=== PATIENT | female | born 1940 | race Caucasian/White ===

== ENCOUNTER 2018-05-18 18:15 | Emergency (ER) | payer MEDICARE, BC ==
[2018-05-18] MEDS ORDERED: PROPARACAINE 0.5% OPHTH DROPS 15 ML EACHEYE STA (18:22)
[2018-05-18 18:28] VITALS: BP 161/60
[2018-05-18] MEDS ORDERED: POLYMYXIN B/TRIMETH OPHTH DROPS RIGHTEYE STA (18:32)
--- NOTE | 2018-05-18 18:34 | ED Physician Documentation ---
PD HPI OPHTHO - Stated complaint Stated Complaint: RT EYE INJ - Chief complaint Chief Complaint: Heent - History obtained from History obtained from: Patient - History of Present Illness Timing - onset: Today Timing - duration: Hours (8) Timing - details: Abrupt onset Pain level max: 5 Pain level now: 5 Location: Right Quality / character: Aching Associated symptoms: Redness, Tearing Contributing factors: Blunt trauma (wooden hangar), Wears glasses. No: Wears contacts Similar symptoms before: Has not had sx before Recently seen: Not recently seen Review of Systems Eyes: reports: Irritation. denies: Decreased vision Ears: denies: Ear pain Nose: denies: Rhinorrhea / runny nose PD PAST MEDICAL HISTORY - Past Medical History Past Medical History: Yes Cardiovascular: Hypertension, High cholesterol - Past Surgical History Past Surgical History: No - Present Medications Home Medications: Ambulatory Orders Medication Instructions Recorded Confirmed Atorvastatin [Lipitor] 10 mg 05/18/18 Hydrochlorothiazide 12.5 mg 05/18/18 Losartan [Cozaar] 50 mg 05/18/18 Polymyxin B/Trimeth Ophth Drop 1 drops RIGHTEYE Q3H 7 Days #1 05/18/18 [Polytrim Ophth Drops] bottle - Allergies Allergies/Adverse Reactions: Allergies Allergy/AdvReac Type Severity Reaction Status Date / Time Tetracyclines Allergy Mild Respiratory Verified 05/18/18 18:22 - Living Situation Living Situation: reports: With family Living Arrangement: reports: At home - Social History Does the pt have substance abuse?: No - Family History Family history: reports: Non contributory PD ED PE NORMAL - Vitals Vital signs reviewed: Yes - General General: Alert and oriented X 3 - HEENT HEENT: Moist mucous membranes - Neck Neck: Supple, no meningeal sign - Neuro Neuro: Alert and oriented X 3 PD ED PE EXPANDED - Eyes Eyes: PERRL, Normal eyelids, Injected conj/sclera, Corneal abrasion, Fluorescein uptake (superior lateral aspect of the OD). No: Eyelid injury, Hyphema, Ant chamber cells/flare Results - Vitals Vitals: Vital Signs - 24 hr 05/18/18 18:18 Temperature 36.7 C Heart Rate 65 Respiratory 18 Rate Blood Pressure 161/60 H O2 Saturation 100 Oxygen O2 Source Room air PD MEDICAL DECISION MAKING - ED course Complexity details: considered differential, d/w patient ED course: Patient is a 77-year-old female who presents with a right eye corneal abrasion. Does not wear contact lenses. Will place on Polytrim ophthalmic and follow- up closely with her doctor. Patient counseled regarding signs and symptoms for which I believe and urgent re-evaluation would be necessary. Patient with good understanding of and agreement to plan and is comfortable going home at this time This document was made in part using voice recognition software. While efforts are made to proofread this document, sound alike and grammatical errors may occur. No evidence of globe perforation - Sepsis Event Vital Signs: Vital Signs - 24 hr 05/18/18 18:18 Temperature 36.7 C Heart Rate 65 Respiratory 18 Rate Blood Pressure 161/60 H O2 Saturation 100 Oxygen O2 Source Room air Departure - Departure Disposition: 01 Home, Self Care Clinical Impression: Corneal abrasion Qualifiers: Encounter type: initial encounter Laterality: right Qualified Code(s): S05.01XA - Injury of conjunctiva and corneal abrasion without foreign body, right eye, initial encounter Condition: Good Instructions: ED Eye Injury Corneal Abrasion Follow-Up: your,doctor in 1 week [Other] Prescriptions: Polymyxin B/Trimeth Ophth Drop [Polytrim Ophth Drops] 1 drops RIGHTEYE Q3H 7 Days #1 bottle Comments: Use the antibiotic eyedrops as instructed. Return if you worsen. This should improve rapidly over the next few days. Discharge Date/Time: 05/18/18 18:41
== END 2018-05-18 18:41 | disposition home or self-care (01) ==
LOC: ED 18:15
DX: S05.01XA Injury of conjunctiva and corneal abrasion without foreign body, right eye, initial encounter (principal); W20.8XXA Other cause of strike by thrown, projected or falling object, initial encounter; I10 Essential (primary) hypertension; E78.00 Pure hypercholesterolemia, unspecified
CPT/HCPCS: 99283; A9270; J3490

== ENCOUNTER 2018-10-30 12:03 | Outpatient (CLI) | payer MEDICARE, BC ==
--- NOTE | 2018-10-30 14:32 | XRAY Report ---
Reason: NONTRAUMATIC PAIN,SWELLING,WEAKNESS,HX OSTEOART Procedure Date: 10/30/2018 Accession Number: [id number] / [id number] Procedure: XR - Wrist 4 View RT CPT Code: FULL RESULT: EXAM: RIGHT WRIST RADIOGRAPHY EXAM DATE: 10/30/2018 12:16 PM. CLINICAL HISTORY: Nontraumatic pain, swelling, weakness, history of osteoarthritis. COMPARISON: None. TECHNIQUE: 3 views. FINDINGS: Bones: Subjectively osteopenic bones. No fractures or bone lesions. Joints: Normal. No subluxations. Soft Tissues: Normal. No soft tissue swelling. IMPRESSION: No fracture or dislocation. No carpal bone derangement. RADIA
--- NOTE | 2018-10-30 15:08 | XRAY Report ---
Reason: NONTRAUMATIC PAIN,SWELLING,WEAKNESS,HX OSTEOART Procedure Date: 10/30/2018 Accession Number: [id number] / [id number] Procedure: XR - Hand 3 View RT CPT Code: FULL RESULT: EXAM: RIGHT HAND RADIOGRAPHY EXAM DATE: 10/30/2018 12:16 PM. CLINICAL HISTORY: Nontraumatic pain, swelling, weakness, history of osteoarthrosis. COMPARISON: None. TECHNIQUE: 3 views. FINDINGS: Bones: Well corticated changes in the distal proximal first phalanx likely represent remote injury. No fractures or bone lesions. Joints: There are mild degenerative changes at the first carpometacarpal joint. There is subtle narrowing of the predominantly distal interphalangeal joints in keeping with osteoarthrosis. No subluxations. Soft Tissues: Normal. No soft tissue swelling. IMPRESSION: Osteoarthrosis. RADIA
== END 2018-10-30 12:04 | disposition home or self-care (01) ==
LOC: DI 12:03
PROVIDERS: ATTEND Family Medicine
DX: M19.041 Primary osteoarthritis, right hand (principal); M25.531 Pain in right wrist

== ENCOUNTER 2021-02-28 09:42 | Outpatient (CLI) | payer MEDICARE, BC ==
--- NOTE | 2021-02-28 15:28 | DEXA Report ---
PROCEDURE: Dexa Spine and/or Hip INDICATIONS: POSTMENOPAUSAL TECHNIQUE: Dual energy x-ray absorptiometry (DXA) was performed on a [employer] System. Regions measur ed are the AP Spine, femoral neck, and if needed forearm. COMPARISON: None. FINDINGS: Lumbar Spine: Bone Mineral Density 1.579 g/cm/cm,T score 3.3, normal bone mineral density Left Femoral Neck: Bone Mineral Density 1.041 g/cm/cm, T score 0.3, normal bone mineral density (T score greater or equal to -1.0: NORMAL) (T score from -1.1 to -2.4: OSTEOPENIA) (T score less than or equal to -2.5 to: OSTEOPOROSIS) Impression: Normal bone mineral density. Patients with diagnosis of osteoporosis or osteopenia should have regular bone mineral density assess ment. For those eligible for Medicare, routine testing is allowed once every 2 years. Testing frequ ency can be increased for patients who have rapidly progressing disease or for those who are receivin g medical therapy to restore bone mass. Reviewed by: Raudel Field MD on 02/28/2021 3:26 PM PDT Approved by: Raudel Field MD on 02/28/2021 3:26 PM PDT Station ID: [id number]
== END 2021-02-28 09:43 | disposition home or self-care (01) ==
LOC: DI 09:42
PROVIDERS: ATTEND Family Medicine
DX: Z78.0 Asymptomatic menopausal state (principal)

== ENCOUNTER 2021-06-02 11:37 | Emergency (ER) | payer MEDICARE, BC ==
[2021-06-02 12:37] LABS: BASOPHILS # (AUTO) 0.1 10^3/uL (0.0-0.1); BASOPHILS % (AUTO) 1.2 %; EOSINOPHILS # (AUTO) 0.1 10^3/uL (0.0-0.7); EOSINOPHILS % (AUTO) 1.2 %; HCT - HEMATOCRIT 41.3 % (37.0-47.0); HGB - HEMOGLOBIN 14.1 g/dL (12.0-16.0); LYMPHOCYTES # (AUTO) 1.7 10^3/uL (1.5-3.5); LYMPHOCYTES % (AUTO) 25.8 %; MEAN CORPUSCULAR HEMOGLOBIN 30.9 pg (27.0-31.0); MEAN CORPUSCULAR HGB CONC 34.1 g/dL (32.0-36.0); MEAN CORPUSCULAR VOLUME 90.6 fL (81.0-99.0); MONOCYTES # (AUTO) 0.4 10^3/uL (0.0-1.0); MONOCYTES % (AUTO) 6.1 %; NEUTROPHILS # (AUTO) 4.3 10^3/uL (1.5-6.6); NEUTROPHILS % (AUTO) 65.4 %; PLT - PLATELET COUNT 270 10^3/uL (130-450); RED BLOOD COUNT 4.56 10^6/uL (4.20-5.40); RED CELL DISTRIBUTION WIDTH 12.6 % (12.0-15.0); WHITE BLOOD COUNT 6.6 x10^3/uL (4.8-10.8)
--- NOTE | 2021-06-02 12:44 | XRAY Report ---
PROCEDURE: Chest 1 View X-Ray INDICATIONS: Chest pain TECHNIQUE: One view of the chest was acquired. COMPARISON: None. FINDINGS: Surgical changes and devices: None. Lungs and pleura: No pleural effusions or pneumothorax. Lungs are clear. Mediastinum: Mediastinal contours appear normal. Heart size is normal. Bones and chest wall: No suspicious bony lesions. Overlying soft tissues appear unremarkable. IMPRESSION: No acute cardiopulmonary process demonstrated radiographically. Reviewed by: Pete Dunaway MD on 06/02/2021 12:42 PM PDT Approved by: Pete Dunaway MD on 06/02/2021 12:42 PM PDT Station ID: [id number]
[2021-06-02] MEDS ORDERED: ONDANSETRON 4 MG/2 ML VIAL IVP STA (12:47)
[2021-06-02] MEDS ORDERED: SODIUM CHLORIDE 0.9% 1,000 ML IV STA (12:47)
[2021-06-02 12:50] LABS: ALBUMIN 4.5 g/dL (3.2-5.5); ALBUMIN/GLOBULIN RATIO 1.8 (1.0-2.2); BILIRUBIN,TOTAL 1.3 mg/dL (0.2-1.0); CALCIUM 9.2 mg/dL (8.5-10.3); CREATININE 0.7 mg/dL (0.4-1.0); POTASSIUM 3.5 mmol/L (3.5-5.0)
--- NOTE | 2021-06-02 12:50 | ED Physician Documentation ---
History of Present Illness - Stated complaint Stated Complaint: WEAKNESS/NAUSEA - Chief complaint Chief Complaint: Abd Pain - Additonal information Additional information: 80-year-old female presents the emergency department for evaluation of weakness and fatigue. She reports that 5 days ago she began having some nausea but no vomiting. She feels cramping in her abdomen but has not had any abdominal pain or loose or watery stools. She just feels very fatigued and has had muscle aches. She has been trying the brat diet and for the last 24 hours a clear liquid diet without resolution of symptoms. She denies fevers, cough, chest pain, shortness of air. No dysuria urgency or frequency. No leg swelling. Patient has received COVID-19 vaccine. No recent travel or known sick contacts. Patient has a history of hypertension but does not carry history of coronary artery disease. Non-smoker no alcohol use. Meds: Losartan, hydrochlorothiazide, amlodipine, statin. Her primary care provider sent her to the ER to obtain labs. Review of Systems Constitutional: reports: Myalgias, Fatigue. denies: Fever, Chills Eyes: reports: Reviewed and negative Ears: reports: Reviewed and negative Nose: reports: Reviewed and negative Throat: reports: Reviewed and negative Cardiac: reports: Reviewed and negative Respiratory: reports: Reviewed and negative GI: reports: Nausea. denies: Abdominal Pain, Vomiting, Constipation, Diarrhea, Hematemesis : denies: Dysuria, Frequency, Hesitancy Skin: denies: Rash, Lesions Musculoskeletal: denies: Neck pain, Back pain Neurologic: reports: Reviewed and negative Psychiatric: reports: Reviewed and negative PD PAST MEDICAL HISTORY - Past Medical History Cardiovascular: Hypertension, High cholesterol - Past Surgical History Past Surgical History: No - Present Medications Home Medications: Ambulatory Orders Medication Instructions Recorded Confirmed Atorvastatin [Lipitor] 10 mg 05/18/18 Losartan [Cozaar] 50 mg 05/18/18 Polymyxin B/Trimeth Ophth Drop 1 drops RIGHTEYE Q3H 7 Days #1 05/18/18 [Polytrim Ophth Drops] bottle hydroCHLOROthiazide 12.5 mg 05/18/18 [Hydrochlorothiazide] Ondansetron Odt [Zofran] 4 mg TL Q6H PRN #10 tablet 06/02/21 - Allergies Allergies/Adverse Reactions: Allergies Allergy/AdvReac Type Severity Reaction Status Date / Time Tetracyclines Allergy Mild Respiratory Verified 06/02/21 11:45 - Social History Does the pt smoke?: No Smoking Status: Never smoker Does the pt drink ETOH?: No Does the pt have substance abuse?: No - Immunizations Immunizations are current?: Yes - POLST Patient has POLST: No PD ED PE NORMAL - General General: Alert and oriented X 3, No acute distress - HEENT HEENT: PERRL - Neck Neck: Supple, no meningeal sign, No adenopathy - Cardiac Cardiac: RRR, No murmur, Strong equal pulses, Other (No leg swelling posterior calf pain tenderness) - Respiratory Respiratory: Clear bilaterally - Abdomen Abdomen: Normal bowel sounds, Non tender, Non distended, Other (Unable to elicit any abdominal pain on exam.) - Back Back: No CVA TTP, No spinal TTP - Derm Derm: Normal color, Warm and dry, No rash - Extremities Extremities: No deformity, No tenderness to palpate, Normal ROM s pain Results - Vitals Vitals: Vital Signs - 24 hr 06/02/21 11:41 Temperature 36.3 C L Heart Rate 67 Respiratory 18 Rate Blood Pressure 162/62 H O2 Saturation 100 Oxygen O2 Source Room air - EKG (time done) 1207 Rate: Rate (enter#) (57) Rhythm: NSR [place]: LAD Intervals: Normal ND QRS: Normal Ischemia: Normal ST segments Compare to prior EKG: Old EKG unavailable Computer interpretation: Agree with computer - Labs Labs: Laboratory Tests 06/02/21 06/02/21 06/02/21 12:15 12:24 12:24 WBC 6.6 RBC 4.56 Hgb 14.1 Hct 41.3 MCV 90.6 MCH 30.9 MCHC 34.1 RDW 12.6 Plt Count 270 MPV 10.0 Neut # (Auto) 4.3 Lymph # (Auto) 1.7 [place] # (Auto) 0.4 Eos # (Auto) 0.1 Baso # (Auto) 0.1 Absolute Nucleated RBC 0.00 Nucleated RBC % 0.0 Sodium 134 L Potassium 3.5 Chloride 95 L Carbon Dioxide 29 Anion Gap 10.0 BUN 12 Creatinine 0.7 Estimated GFR (MDRD) 81 L Glucose 98 Calcium 9.2 Total Bilirubin 1.3 H AST 24 ALT 24 Alkaline Phosphatase 80 Troponin I High Sens Total Protein 7.0 Albumin 4.5 Globulin 2.5 Albumin/Globulin Ratio 1.8 Lipase 27 TSH Urine Color STRAW Urine Clarity CLEAR Urine pH 7.0 Ur Specific [place] 1.010 Urine Protein NEGATIVE Urine Glucose (UA) NEGATIVE Urine Ketones NEGATIVE Urine Occult Blood TRACE-INTA Urine Nitrite NEGATIVE Urine Bilirubin NEGATIVE Urine Urobilinogen 0.2 (NORMAL) Ur Leukocyte Esterase NEGATIVE Ur Microscopic Review NOT INDICATED 06/02/21 06/02/21 12:24 12:24 WBC RBC Hgb Hct MCV MCH MCHC RDW Plt Count MPV Neut # (Auto) Lymph # (Auto) [place] # (Auto) Eos # (Auto) Baso # (Auto) Absolute Nucleated RBC Nucleated RBC % Sodium Potassium Chloride Carbon Dioxide Anion Gap BUN Creatinine Estimated GFR (MDRD) Glucose Calcium Total Bilirubin AST ALT Alkaline Phosphatase Troponin I High Sens 2.9 Total Protein Albumin Globulin Albumin/Globulin Ratio Lipase TSH 2.33 Urine Color Urine Clarity Urine pH Ur Specific [place] Urine Protein Urine Glucose (UA) Urine Ketones Urine Occult Blood Urine Nitrite Urine Bilirubin Urine Urobilinogen Ur Leukocyte Esterase Ur Microscopic Review - Rads (name of study) CXR Radiology: Final report received (No acute process) PD MEDICAL DECISION MAKING - ED course Complexity details: reviewed results, re-evaluated patient, considered differential, d/w patient ED course: This is a very well-appearing 80-year-old female that presents to the emergency department for evaluation of 5 days weakness, fatigue and abdominal cramping. She has had no fevers, cough congestion dysuria. She did speak with her primary care doctor who advised a brat diet for a few days but she did not feel improved that she advised her to come to the ER for labs. Past medical history significant only for hypertension. Clinically on exam there were no worrisome findings no abdominal tenderness elicited. Screening EKG is nonischemic. High-sensitivity troponin is negative. Screening labs including CBC electrolytes urine and TSH are also all unrevealing. COVID- 19 screen is pending though patient was fully vaccinated I suspect that she has a mild viral pathology causing her fatigue and abdominal cramping. Given lack of abdominal tenderness CT was deferred. Patient felt markedly improved after a liter of IV fluids as well as some Zofran thus I will write a prescription for limited amount of Zofran at home. Continue follow-up with her primary care provider. Emergent return precautions were discussed. Departure - Departure Disposition: Home, Self Care Clinical Impression: Nausea Fatigue Qualifiers: Fatigue type: unspecified Qualified Code(s): R53.83 - Other fatigue Condition: Stable Record reviewed to determine appropriate education?: Yes Follow-Up: Jania Lopez MD [Primary Care Provider] - Prescriptions: Ondansetron Odt [Zofran] 4 mg TL Q6H PRN #10 tablet PRN Reason: Nausea / Vomiting Comments: Mylene lozoya were seen in the ER today for about 5 days of generalized weakness, fatigue and abdominal cramping. Your screening labs including your CBC, electrolytes and thyroid testing were all negative. Your EKG does not show any worrisome findings. Your chest x-ray was normal. We did give you a liter of IV fluids here in the emergency department as well as some Zofran which did improve your symptoms. I am prescribing you a limited amount of Zofran to help with nausea at home. I encourage you to try and stay well-hydrated and advance your diet as you are feeling better. If your symptoms are not improving, you develop fevers, have suddenly severe abdominal pain or chest pain please return immediately to the ER for a second evaluation.
[2021-06-02 12:54] LABS: BILIRUBIN,URINE NEGATIVE (NEGATIVE); GLUCOSE, URINE (UA) NEGATIVE (NEGATIVE); KETONES,URINE (UA) NEGATIVE (NEGATIVE); LEUKOCYTE ESTERASE, URINE NEGATIVE (NEGATIVE); NITRITE,URINE NEGATIVE (NEGATIVE); OCCULT BLOOD,URINE TRACE-INTA (NEGATIVE); PROTEIN,URINE NEGATIVE (NEGATIVE); UROBILINOGEN,URINE 0.2 (NORMAL) E.U./dL (NORMAL)
[2021-06-02 12:56] LABS: CLARITY,URINE CLEAR (CLEAR)
[2021-06-02 14:01] VITALS: BP 142/58
== END 2021-06-02 14:05 | disposition home or self-care (01) ==
LOC: ED 11:37
DX: R11.0 Nausea (principal); R53.83 Other fatigue; Z20.822 Contact with and (suspected) exposure to COVID-19
CPT/HCPCS: 36415; 71045; 80053; 81003; 83690; 84443; 84484; 85025; 93005; 96374; 99284; U0004; 81001